=== PATIENT | female | born 1970 | race Two or more races ===

== ENCOUNTER 2017-10-20 09:09 | Outpatient (CLI) | payer OTHER | END 2017-10-20 11:09 | disposition home or self-care (01) | LOC: ECT 09:09 | DX: F33.2 Major depressive disorder, recurrent severe without psychotic features (principal); F60.9 Personality disorder, unspecified; F10.20 Alcohol dependence, uncomplicated; Z90.49 Acquired absence of other specified parts of digestive tract; R73.03 Prediabetes; Z98.84 Bariatric surgery status; G47.33 Obstructive sleep apnea (adult) (pediatric); Z81.8 Family history of other mental and behavioral disorders ==

== ENCOUNTER 2017-10-21 06:40 | Outpatient (RCR) | payer OTHER ==
[~2017-10-21] VITALS: Ht 170.2 cm; Wt 90.7 kg
[2017-10-21] VITALS (7 sets, daily range): BP systolic 102–130; BP diastolic 64–83
[2017-10-21] MEDS ORDERED: Ketorolac 30mg Inj ONE (06:41)
[2017-10-21] MEDS ORDERED: Methohexital Sodium Syr 100mg/10ml IVP ONE (06:41)
[2017-10-21] MEDS ORDERED: NS 500ML ONE (06:41)
[2017-10-21] MEDS ORDERED: Succinylcholine 20mg/ml 10ml vial ONE (06:41)
[2017-10-21] MEDS ORDERED: Sodium Chloride 500ML 500 ML IV ONE (10:44)
[2017-10-23] MEDS ORDERED: Methohexital Sodium Syr 100mg/10ml IVP ONE (06:00)
[2017-10-23] MEDS ORDERED: Succinylcholine 20mg/ml 10ml vial ONE (06:00)
[2017-10-23] MEDS ORDERED: NS 500ML ONE (06:00)
[2017-10-23] MEDS ORDERED: Glycopyrrolate 0.2mg/ml 1ml Vial ONE (06:00)
[2017-10-23] MEDS ORDERED: Ketorolac 60mg Inj ONE (06:00)
[2017-10-23 08:57] VITALS: BP 133/80
[2017-10-23] MEDS ORDERED: Sodium Chloride 500ML 500 ML IV ONE (08:57)
[2017-10-23 09:02] VITALS: BP 129/87
[2017-10-23 09:07] VITALS: BP 115/72
[2017-10-23 09:12] VITALS: BP 113/75
[2017-10-23 09:17] VITALS: BP 116/74
[2017-10-26] MEDS ORDERED: NS 500ML ONE (07:00)
[2017-10-26] MEDS ORDERED: Glycopyrrolate 0.2mg/ml 1ml Vial ONE (07:00)
[2017-10-26] MEDS ORDERED: Succinylcholine 20mg/ml 10ml vial ONE (07:00)
[2017-10-26] MEDS ORDERED: Methohexital Sodium Syr 100mg/10ml IVP ONE (07:00)
[2017-10-26] MEDS ORDERED: Ketorolac 60mg Inj ONE (07:00)
[2017-10-26] MEDS ORDERED: Sodium Chloride 500ML 500 ML IV ONE (10:34)
[2017-10-26 10:35] VITALS: BP 156/83
[2017-10-26 10:40] VITALS: BP 140/72
[2017-10-26 10:45] VITALS: BP 138/73
[2017-10-26 10:50] VITALS: BP 133/78
[2017-10-26 10:55] VITALS: BP 132/72
[2017-10-28] MEDS ORDERED: Ketorolac 60mg Inj ONE (07:00)
[2017-10-28] MEDS ORDERED: Glycopyrrolate 0.2mg/ml 1ml Vial ONE (07:00)
[2017-10-28] MEDS ORDERED: NS 500ML ONE (07:00)
[2017-10-28] MEDS ORDERED: Methohexital Sodium Syr 100mg/10ml IVP ONE (07:00)
[2017-10-28] MEDS ORDERED: Succinylcholine 20mg/ml 10ml vial ONE (07:00)
[2017-10-28 10:32] VITALS: BP 125/75
[2017-10-28 10:50] VITALS: BP 158/82
[2017-10-28] MEDS ORDERED: Sodium Chloride 500ML 500 ML IV ONE (10:50)
[2017-10-28 10:55] VITALS: BP 143/72
[2017-10-28 11:00] VITALS: BP 130/80
[2017-10-28 11:05] VITALS: BP 148/81
[2017-10-30 09:13] VITALS: BP 139/80
[2017-10-30] MEDS ORDERED: Sodium Chloride 500ML 500 ML IV ONE (09:26)
[2017-10-30 09:30] VITALS: BP 161/81
[2017-10-30 09:35] VITALS: BP 145/84
[2017-10-30 09:40] VITALS: BP 145/83
[2017-10-30 09:45] VITALS: BP 143/80
[2017-10-31] MEDS ORDERED: Methohexital Sodium 500mg Vial IVP ONE (10:13)
[2017-10-31] MEDS ORDERED: NS 500ML ONE (10:13)
[2017-10-31] MEDS ORDERED: Glycopyrrolate 0.2mg/ml 1ml Vial ONE (10:13)
[2017-10-31] MEDS ORDERED: Succinylcholine 20mg/ml 10ml vial ONE (10:13)
[2017-10-31] MEDS ORDERED: Ketorolac 60mg Inj ONE (10:13)
== END 2017-10-31 | disposition home or self-care (01) ==
LOC: ECT 06:40
DX: F33.2 Major depressive disorder, recurrent severe without psychotic features (principal)
CPT/HCPCS: 90870; J0330; J1885; J3490; J7040

== ENCOUNTER 2017-11-02 08:20 | Outpatient (RCR) | payer OTHER ==
[~2017-11-02] VITALS: Ht 170.2 cm; Wt 90.7 kg
[2017-11-02] MEDS ORDERED: NS 500ML ONE (08:21)
[2017-11-02] MEDS ORDERED: Methohexital Sodium Syr 100mg/10ml IVP ONE (08:21)
[2017-11-02] MEDS ORDERED: Glycopyrrolate 0.2mg/ml 1ml Vial ONE (08:21)
[2017-11-02] MEDS ORDERED: Succinylcholine 20mg/ml 10ml vial ONE (08:21)
[2017-11-02] MEDS ORDERED: Ketorolac 60mg Inj ONE (08:21)
[2017-11-02 08:25] VITALS: BP 145/93
[2017-11-02] MEDS ORDERED: Sodium Chloride 500ML 500 ML IV ONE (08:39)
[2017-11-02 08:40] VITALS: BP 176/90
[2017-11-02 08:45] VITALS: BP 131/82
[2017-11-02 08:50] VITALS: BP 131/82
[2017-11-02 08:55] VITALS: BP 161/88
[2017-11-02 09:00] VITALS: BP 161/88
[2017-11-06] MEDS ORDERED: NS 500ML ONE (07:00)
[2017-11-06] MEDS ORDERED: Methohexital Sodium Syr 100mg/10ml IVP ONE (07:00)
[2017-11-06] MEDS ORDERED: Ketorolac 60mg Inj ONE (07:00)
[2017-11-06] MEDS ORDERED: Glycopyrrolate 0.2mg/ml 1ml Vial ONE (07:00)
[2017-11-06] MEDS ORDERED: Succinylcholine 20mg/ml 10ml vial ONE (07:00)
[2017-11-06 08:37] VITALS: BP 134/76
[2017-11-06 08:55] VITALS: BP 157/81
[2017-11-06] MEDS ORDERED: Sodium Chloride 500ML 500 ML IV ONE (08:55)
[2017-11-06 09:00] VITALS: BP 156/85
[2017-11-06 09:05] VITALS: BP 154/87
[2017-11-06 09:10] VITALS: BP 154/85
[2017-11-09] MEDS ORDERED: Succinylcholine 20mg/ml 10ml vial ONE (07:00)
[2017-11-09] MEDS ORDERED: Glycopyrrolate 0.2mg/ml 1ml Vial ONE (07:00)
[2017-11-09] MEDS ORDERED: Methohexital Sodium Syr 100mg/10ml IVP ONE (07:00)
[2017-11-09] MEDS ORDERED: NS 500ML ONE (07:00)
[2017-11-09] MEDS ORDERED: Ketorolac 60mg Inj ONE (07:00)
[2017-11-09 11:03] VITALS: BP 143/86
[2017-11-09] MEDS ORDERED: Sodium Chloride 500ML 500 ML IV ONE (11:13)
[2017-11-09 11:15] VITALS: BP 162/74
[2017-11-09 11:20] VITALS: BP 140/77
[2017-11-09 11:25] VITALS: BP 142/80
[2017-11-09 11:30] VITALS: BP 136/77
[2017-11-10] MEDS ORDERED: Ketorolac 60mg Inj ONE (07:00)
[2017-11-10] MEDS ORDERED: NS 500ML ONE (07:00)
[2017-11-10] MEDS ORDERED: Methohexital Sodium Syr 100mg/10ml IVP ONE (07:00)
[2017-11-10] MEDS ORDERED: Succinylcholine 20mg/ml 10ml vial ONE (07:00)
[2017-11-10] MEDS ORDERED: Glycopyrrolate 0.2mg/ml 1ml Vial ONE (07:00)
[2017-11-11] MEDS ORDERED: Glycopyrrolate 0.2mg/ml 1ml Vial ONE (08:21)
[2017-11-11] MEDS ORDERED: Ketorolac 60mg Inj ONE (08:21)
[2017-11-11] MEDS ORDERED: NS 500ML ONE (08:21)
[2017-11-11] MEDS ORDERED: Succinylcholine 20mg/ml 10ml vial ONE (08:21)
[2017-11-11] MEDS ORDERED: Methohexital Sodium Syr 100mg/10ml IVP ONE (08:21)
[2017-11-11 09:54] VITALS: BP 157/99
[2017-11-11 10:10] VITALS: BP 199/107
[2017-11-11 10:15] VITALS: BP 143/98
[2017-11-11 10:20] VITALS: BP 153/78
[2017-11-11 10:25] VITALS: BP 156/87
[2017-11-16] MEDS ORDERED: Sodium Chloride 500ML 500 ML IV ONE (10:05)
[2017-11-18] MEDS ORDERED: Succinylcholine 20mg/ml 10ml vial ONE (08:00)
[2017-11-18] MEDS ORDERED: NS 500ML ONE (08:00)
[2017-11-18] MEDS ORDERED: Ketorolac 60mg Inj ONE (08:00)
[2017-11-18] MEDS ORDERED: Methohexital Sodium Syr 100mg/10ml IVP ONE (08:00)
[2017-11-18] MEDS ORDERED: Midazolam 2mg/2ml Inj ONE (08:00)
[2017-11-18] MEDS ORDERED: Glycopyrrolate 0.2mg/ml 1ml Vial ONE (08:00)
[2017-11-18 11:40] VITALS: BP 196/93
[2017-11-18 11:45] VITALS: BP 138/81
[2017-11-18] MEDS ORDERED: Midazolam 2mg/2ml Inj IVP PRN (11:47)
[2017-11-18] MEDS ORDERED: Sodium Chloride 500ML 500 ML IV ONE (11:47)
[2017-11-18 12:00] VITALS: BP 131/81
[2017-11-20] MEDS ORDERED: Glycopyrrolate 0.2mg/ml 1ml Vial ONE (07:00)
[2017-11-20] MEDS ORDERED: NS 500ML ONE (07:00)
[2017-11-20] MEDS ORDERED: Methohexital Sodium Syr 100mg/10ml IVP ONE (07:00)
[2017-11-20] MEDS ORDERED: Ketorolac 60mg Inj ONE (07:00)
[2017-11-20] MEDS ORDERED: Midazolam 2mg/2ml Inj ONE (07:00)
[2017-11-20] MEDS ORDERED: Succinylcholine 20mg/ml 10ml vial ONE (07:00)
[2017-11-20 08:43] VITALS: BP 130/83
[2017-11-20] MEDS ORDERED: Sodium Chloride 500ML 500 ML IV ONE (08:54)
[2017-11-20 08:55] VITALS: BP 142/97
[2017-11-20 09:00] VITALS: BP 136/85
[2017-11-20 09:05] VITALS: BP 141/78
[2017-11-20 09:10] VITALS: BP 132/77
[2017-11-20 09:15] VITALS: BP 136/73
[2017-11-23] MEDS ORDERED: NS 500ML ONE (07:00)
[2017-11-23] MEDS ORDERED: Glycopyrrolate 0.2mg/ml 1ml Vial ONE (07:00)
[2017-11-23] MEDS ORDERED: Methohexital Sodium Syr 100mg/10ml IVP ONE (07:00)
[2017-11-23] MEDS ORDERED: Midazolam 2mg/2ml Inj ONE (07:00)
[2017-11-23] MEDS ORDERED: Succinylcholine 20mg/ml 10ml vial ONE (07:00)
[2017-11-23] MEDS ORDERED: Ketorolac 60mg Inj ONE (07:00)
[2017-11-23] MEDS ORDERED: Sodium Chloride 500ML 500 ML IV ONE (09:29)
[2017-11-23] MEDS ORDERED: Atropine Sulfate 0.4mg/ml inj IVP PRN (09:29)
[2017-11-23 09:30] VITALS: BP 130/65
[2017-11-23 09:35] VITALS: BP 129/82
[2017-11-23 09:40] VITALS: BP 121/63
[2017-11-23 09:45] VITALS: BP 110/54
[2017-11-23 09:50] VITALS: BP 115/77
[2017-11-25] MEDS ORDERED: Methohexital Sodium Syr 100mg/10ml IVP ONE (07:00)
[2017-11-25] MEDS ORDERED: Succinylcholine 20mg/ml 10ml vial ONE (07:00)
[2017-11-25] MEDS ORDERED: NS 500ML ONE (07:00)
[2017-11-25] MEDS ORDERED: Glycopyrrolate 0.2mg/ml 1ml Vial ONE (07:00)
[2017-11-25] MEDS ORDERED: Midazolam 2mg/2ml Inj ONE (07:00)
[2017-11-25] MEDS ORDERED: Ketorolac 60mg Inj ONE (07:00)
[2017-11-25 11:15] VITALS: BP 150/79
[2017-11-25 11:20] VITALS: BP 136/76
[2017-11-25 11:25] VITALS: BP 148/77
[2017-11-25 11:30] VITALS: BP 149/79
[2017-11-25 11:35] VITALS: BP 152/79
[2017-11-25] MEDS ORDERED: Sodium Chloride 500ML 500 ML IV ONE (15:00)
== END 2017-12-01 | disposition home or self-care (01) ==
LOC: ECT 08:20
DX: F33.2 Major depressive disorder, recurrent severe without psychotic features (principal)
CPT/HCPCS: 90870; J0330; J2250; J7040

== ENCOUNTER 2017-12-02 08:21 | Outpatient (RCR) | payer OTHER ==
[~2017-12-02] VITALS: Ht 170.2 cm; Wt 90.7 kg
[2017-12-02] MEDS ORDERED: Glycopyrrolate 0.2mg/ml 1ml Vial ONE ×2 (08:22)
[2017-12-02] MEDS ORDERED: Succinylcholine 20mg/ml 10ml vial ONE ×2 (08:22)
[2017-12-02] MEDS ORDERED: NS 500ML ONE ×2 (08:22)
[2017-12-02] MEDS ORDERED: Midazolam 2mg/2ml Inj ONE ×2 (08:22)
[2017-12-02] MEDS ORDERED: Methohexital Sodium Syr 100mg/10ml IVP ONE ×2 (08:22)
[2017-12-02] MEDS ORDERED: Ketorolac 60mg Inj ONE ×2 (08:22)
[2017-12-02 11:46] VITALS: BP 119/79
[2017-12-02] MEDS ORDERED: Sodium Chloride 500ML 500 ML IV ONE (12:04)
[2017-12-02 12:05] VITALS: BP 147/86
[2017-12-02 12:10] VITALS: BP 124/69
[2017-12-02 12:15] VITALS: BP 112/71
[2017-12-02 12:20] VITALS: BP 102/60
[2017-12-07 11:03] VITALS: BP 132/87
[2017-12-07] MEDS ORDERED: Atropine Sulfate 0.4mg/ml inj IVP PRN (11:23)
[2017-12-07] MEDS ORDERED: Sodium Chloride 500ML 500 ML IV ONE (11:23)
[2017-12-07 11:25] VITALS: BP 126/76
[2017-12-07 11:30] VITALS: BP 124/73
[2017-12-07 11:35] VITALS: BP 103/60
[2017-12-07 11:40] VITALS: BP 106/55
[2017-12-18 08:05] VITALS: BP 123/79
[2017-12-18] MEDS ORDERED: Sodium Chloride 500ML 500 ML IV ONE (08:14)
[2017-12-18 08:15] VITALS: BP 143/70
[2017-12-18 08:20] VITALS: BP 150/96
[2017-12-18 08:25] VITALS: BP 111/67
[2017-12-18 08:30] VITALS: BP 117/73
[2017-12-18 08:35] VITALS: BP 111/68
[2017-12-19] MEDS ORDERED: Methohexital Sodium Syr 100mg/10ml IVP ONE (08:00)
[2017-12-19] MEDS ORDERED: NS 500ML ONE (08:00)
[2017-12-19] MEDS ORDERED: Ketorolac 60mg Inj IM ONE (08:00)
[2017-12-19] MEDS ORDERED: Succinylcholine 20mg/ml 10ml vial ONE (08:00)
[2017-12-19] MEDS ORDERED: Midazolam 2mg/2ml Inj ONE (08:00)
[2017-12-19] MEDS ORDERED: Glycopyrrolate 0.2mg/ml 1ml Vial ONE (08:00)
[2018-01-01] MEDS ORDERED: Methohexital Sodium Syr 100mg/10ml IVP ONE (06:00)
[2018-01-01] MEDS ORDERED: Glycopyrrolate 0.2mg/ml 1ml Vial ONE (06:00)
[2018-01-01] MEDS ORDERED: Midazolam 2mg/2ml Inj ONE (06:00)
[2018-01-01] MEDS ORDERED: NS 500ML ONE (06:00)
[2018-01-01] MEDS ORDERED: Ketorolac 60mg Inj IM ONE (06:00)
[2018-01-01] MEDS ORDERED: Succinylcholine 20mg/ml 10ml vial ONE (06:00)
[2018-01-01 08:07] VITALS: BP 121/83
[2018-01-01] MEDS ORDERED: Sodium Chloride 500ML 500 ML IV ONE (08:29)
[2018-01-01 08:30] VITALS: BP 118/74
[2018-01-01 08:35] VITALS: BP 108/72
[2018-01-01 08:40] VITALS: BP 111/55
[2018-01-01 08:45] VITALS: BP 102/63
== END 2018-01-01 | disposition home or self-care (01) ==
LOC: ECT 08:21
DX: F33.2 Major depressive disorder, recurrent severe without psychotic features (principal)
CPT/HCPCS: 90870; J0330; J2250; J7040

== ENCOUNTER 2018-01-22 04:38 | Outpatient (RCR) | payer OTHER ==
[~2018-01-22] VITALS: Ht 170.2 cm; Wt 90.7 kg
[2018-01-22] MEDS ORDERED: Succinylcholine 20mg/ml 10ml vial ONE (04:39)
[2018-01-22] MEDS ORDERED: Glycopyrrolate 0.2mg/ml 1ml Vial ONE (04:39)
[2018-01-22] MEDS ORDERED: NS 500ML ONE (04:39)
[2018-01-22] MEDS ORDERED: Methohexital Sodium Syr 100mg/10ml IVP ONE (04:39)
[2018-01-22] MEDS ORDERED: Midazolam 2mg/2ml Inj ONE (04:39)
[2018-01-22] MEDS ORDERED: Ketorolac 60mg Inj IM ONE (04:39)
[2018-01-22 08:30] VITALS: BP 139/84
[2018-01-22] MEDS ORDERED: Sodium Chloride 500ML 500 ML IV ONE (08:41)
[2018-01-22 08:45] VITALS: BP 120/65
[2018-01-22 08:50] VITALS: BP 120/65
[2018-01-22 09:00] VITALS: BP 108/66
== END 2018-01-31 | disposition home or self-care (01) ==
LOC: ECT 04:38
DX: F33.2 Major depressive disorder, recurrent severe without psychotic features (principal)
CPT/HCPCS: 90870; J0330; J2250; J7040

== ENCOUNTER 2018-02-19 05:06 | Outpatient (RCR) | payer OTHER ==
[~2018-02-19] VITALS: Ht 170.2 cm; Wt 90.7 kg
[2018-02-22] MEDS ORDERED: NS 500ML ONE (08:00)
[2018-02-22] MEDS ORDERED: Glycopyrrolate 0.2mg/ml 1ml Vial ONE (08:00)
[2018-02-22] MEDS ORDERED: Ketorolac 60mg Inj IM ONE (08:00)
[2018-02-22] MEDS ORDERED: Midazolam 2mg/2ml Inj ONE (08:00)
[2018-02-22] MEDS ORDERED: Methohexital Sodium Syr 100mg/10ml IVP ONE (08:00)
[2018-02-22] MEDS ORDERED: Succinylcholine 20mg/ml 10ml vial ONE (08:00)
[2018-02-22 08:07] VITALS: BP 117/69
[2018-02-22] MEDS ORDERED: Sodium Chloride 500ML 500 ML IV ONE (08:23)
[2018-02-22 08:25] VITALS: BP 111/66
[2018-02-22 08:30] VITALS: BP 111/66
[2018-02-22 08:35] VITALS: BP 128/74
[2018-02-22 08:40] VITALS: BP 111/38
== END 2018-03-03 | disposition home or self-care (01) ==
LOC: ECT 05:06
DX: F33.2 Major depressive disorder, recurrent severe without psychotic features (principal)
CPT/HCPCS: 90870; J0330; J2250; J7040

== ENCOUNTER 2018-03-19 04:38 | Outpatient (RCR) | payer OTHER ==
[~2018-03-19] VITALS: Ht 170.2 cm; Wt 91.0 kg
[2018-03-19] MEDS ORDERED: Ketorolac 60mg Inj IM ONE (04:39)
[2018-03-19] MEDS ORDERED: Midazolam 2mg/2ml Inj ONE (04:39)
[2018-03-19] MEDS ORDERED: Methohexital Sodium Syr 100mg/10ml IVP ONE (04:39)
[2018-03-19] MEDS ORDERED: Glycopyrrolate 0.2mg/ml 1ml Vial ONE (04:39)
[2018-03-19] MEDS ORDERED: Succinylcholine 20mg/ml 10ml vial ONE (04:39)
[2018-03-19] MEDS ORDERED: NS 500ML ONE (04:39)
[2018-03-19 08:36] VITALS: BP 107/88
[2018-03-19] MEDS ORDERED: Sodium Chloride 500ML 500 ML IV ONE (08:47)
[2018-03-19 08:50] VITALS: BP 122/69
[2018-03-19 08:55] VITALS: BP 124/51
[2018-03-19 09:00] VITALS: BP 149/90
[2018-03-19 09:05] VITALS: BP 124/51
== END 2018-04-02 | disposition home or self-care (01) ==
LOC: ECT 04:38
DX: F33.2 Major depressive disorder, recurrent severe without psychotic features (principal)
CPT/HCPCS: 90870; J0330; J2250; J7040

== ENCOUNTER 2018-04-16 04:39 | Outpatient (RCR) | payer OTHER ==
[~2018-04-16] VITALS: Ht 170.2 cm; Wt 90.7 kg
[2018-04-16] MEDS ORDERED: Ketorolac 60mg Inj IM ONE (04:40)
[2018-04-16] MEDS ORDERED: NS 500ML ONE (04:40)
[2018-04-16] MEDS ORDERED: Glycopyrrolate 0.2mg/ml 1ml Vial ONE (04:40)
[2018-04-16] MEDS ORDERED: Midazolam 2mg/2ml Inj ONE (04:40)
[2018-04-16] MEDS ORDERED: Methohexital Sodium Syr 100mg/10ml IVP ONE (04:40)
[2018-04-16] MEDS ORDERED: Succinylcholine 20mg/ml 10ml vial ONE (04:40)
[2018-04-16 08:23] VITALS: BP 142/98
[2018-04-16] MEDS ORDERED: Sodium Chloride 500ML 500 ML IV ONE (08:36)
[2018-04-16 08:40] VITALS: BP 112/57
[2018-04-16 08:45] VITALS: BP 111/71
[2018-04-16 08:50] VITALS: BP 114/62
[2018-04-16 08:55] VITALS: BP 118/55
== END 2018-05-03 | disposition home or self-care (01) ==
LOC: ECT 04:39
DX: F33.2 Major depressive disorder, recurrent severe without psychotic features (principal)
CPT/HCPCS: 90870; J0330; J2250; J7040

== ENCOUNTER 2018-05-21 06:36 | Outpatient (RCR) | payer OTHER ==
[~2018-05-21] VITALS: Ht 170.2 cm; Wt 91.0 kg
[2018-05-21] MEDS ORDERED: Ketorolac 60mg Inj IM ONE ×2 (06:37)
[2018-05-21] MEDS ORDERED: Glycopyrrolate 0.2mg/ml 1ml Vial ONE ×2 (06:37)
[2018-05-21] MEDS ORDERED: Methohexital Sodium 500mg Vial IVP ONE (06:37)
[2018-05-21] MEDS ORDERED: Methohexital Sodium Syr 100mg/10ml IVP ONE (06:37)
[2018-05-21] MEDS ORDERED: NS 500ML ONE ×2 (06:37)
[2018-05-21] MEDS ORDERED: Succinylcholine 20mg/ml 10ml vial ONE ×2 (06:37)
[2018-05-21] MEDS ORDERED: Midazolam 2mg/2ml Inj ONE ×2 (06:37)
[2018-05-21 09:13] VITALS: BP 127/89
[2018-05-21 09:30] VITALS: BP 106/67
[2018-05-21 09:35] VITALS: BP 117/66
[2018-05-21 09:40] VITALS: BP 122/68
[2018-05-21 09:45] VITALS: BP 108/70
[2018-05-31 08:13] VITALS: BP 138/90
[2018-05-31 08:25] VITALS: BP 122/76
[2018-05-31 08:30] VITALS: BP 125/59
[2018-05-31 08:35] VITALS: BP 122/59
[2018-05-31 08:40] VITALS: BP 130/90
== END 2018-06-03 | disposition home or self-care (01) ==
LOC: ECT 06:36
DX: F33.2 Major depressive disorder, recurrent severe without psychotic features (principal); F10.20 Alcohol dependence, uncomplicated; F60.9 Personality disorder, unspecified; J45.909 Unspecified asthma, uncomplicated; Z90.49 Acquired absence of other specified parts of digestive tract; G89.29 Other chronic pain; M54.9 Dorsalgia, unspecified; G47.33 Obstructive sleep apnea (adult) (pediatric)
CPT/HCPCS: 90870; J0330; J2250; J3490; J7040

== ENCOUNTER 2018-06-18 07:23 | Outpatient (RCR) | payer OTHER ==
[~2018-06-18] VITALS: Ht 30.5 cm; Wt 0.5 kg
[2018-06-18] MEDS ORDERED: NS 500ML ONE (07:24)
[2018-06-18] MEDS ORDERED: Glycopyrrolate 0.2mg/ml 1ml Vial ONE (07:24)
[2018-06-18] MEDS ORDERED: Succinylcholine 20mg/ml 10ml vial ONE (07:24)
[2018-06-18] MEDS ORDERED: Midazolam 2mg/2ml Inj ONE (07:24)
[2018-06-18] MEDS ORDERED: Methohexital Sodium Syr 100mg/10ml IVP ONE (07:24)
[2018-06-18] MEDS ORDERED: Ketorolac 60mg Inj IM ONE (07:24)
[2018-06-18 09:00] VITALS: BP 127/86
[2018-06-18 09:15] VITALS: BP 118/64
[2018-06-18 09:20] VITALS: BP 116/72
[2018-06-18 09:25] VITALS: BP 115/67
[2018-06-18 09:30] VITALS: BP 119/67
== END 2018-07-01 | disposition home or self-care (01) ==
LOC: ECT 07:23
DX: F33.2 Major depressive disorder, recurrent severe without psychotic features (principal)
CPT/HCPCS: 90870; J0330; J2250; J7040

== ENCOUNTER 2018-07-16 04:35 | Outpatient (RCR) | payer OTHER ==
[~2018-07-16] VITALS: Ht 170.2 cm; Wt 91.0 kg
[2018-07-16] MEDS ORDERED: Glycopyrrolate 0.2mg/ml 1ml Vial ONE (04:36)
[2018-07-16] MEDS ORDERED: Succinylcholine 20mg/ml 10ml vial ONE (04:36)
[2018-07-16] MEDS ORDERED: Methohexital Sodium Syr 100mg/10ml IVP ONE (04:36)
[2018-07-16] MEDS ORDERED: NS 500ML ONE (04:36)
[2018-07-16] MEDS ORDERED: Ketorolac 60mg Inj IM ONE (04:36)
[2018-07-16] MEDS ORDERED: Midazolam 2mg/2ml Inj ONE (04:36)
[2018-07-16 09:25] VITALS: BP 139/98
[2018-07-16 09:40] VITALS: BP 134/85
[2018-07-16 09:45] VITALS: BP 105/58
[2018-07-16 09:50] VITALS: BP 106/62
[2018-07-16 09:55] VITALS: BP 106/63
== END 2018-08-01 | disposition home or self-care (01) ==
LOC: ECT 04:35
DX: F33.2 Major depressive disorder, recurrent severe without psychotic features (principal)
CPT/HCPCS: 90870; J0330; J2250; J7040